=== PATIENT | female | born 1960 | race Asian ===

== ENCOUNTER 2020-12-22 15:09 | Emergency (ER) | payer MEDICARE, OTHER ==
[~2020-12-22] VITALS: Ht 152.4 cm; Wt 49.9 kg
[2020-12-22 15:20] VITALS: BP 126/48
== END 2020-12-22 16:47 | disposition home or self-care (01) ==
LOC: ER 15:09
DX: R51.9 Headache, unspecified (principal); I10 Essential (primary) hypertension; V89.2XXA Person injured in unspecified motor-vehicle accident, traffic, initial encounter; Y93.89 Activity, other specified; Y92.89 Other specified places as the place of occurrence of the external cause; Y99.8 Other external cause status